=== PATIENT | female | born 1950 | race Caucasian/White ===

== ENCOUNTER → 2018-07-09 09:14 | Outpatient (CLI) | payer MEDICARE, SELFPAY ==
--- NOTE | 2018-06-12 15:13 | EKG12_ITS ---
Test Reason : PREOP Blood Pressure : / mmHG Vent. Rate : 075 BPM Atrial Rate : 075 BPM P-R Int : 176 ms QRS Dur : 094 ms QT Int : 372 ms P-R-T Axes : 048 064 037 degrees QTc Int : 415 ms Normal sinus rhythm Normal ECG Confirmed by CAITLIN THOMAS, HAWA ([id number]), rn oncology research COURTNEY GUILLERMO ([id number]) on 06/13/2018 9:18:23 AM Referred By: Michael Ayala Confirmed By:HAWA TUCKER MD
[2018-06-12 16:12] LABS: Anion Gap 4 (5-15); BUN 9 mg/dL (7-18); BUN/Creat Ratio 9.4 RATIO (10-20); Calcium,Total 9.2 mg/dL (8.5-10.1); Chloride 103 mmol/L (98-107); Creatinine, Serum 0.96 mg/dL (0.55-1.02); EST Glomerular Filtration Rate 62 mL/min (>60); Est Glom Filt Rate - Afr Amer 75 mL/min (>60); Glucose 96 mg/dL (74-106); Potassium 4.4 mmol/L (3.5-5.1); Sodium Level 137 mmol/L (136-145); Thyroid Stim Hormone (TSH) 2.49 uIU/mL (0.358-3.74)
[2018-06-12 16:47] LABS: Hematocrit 40.4 % (37-47); Hemoglobin 13.2 g/dl (12.0-15.0); Mean Corp Hgb Conc 32.7 g/gl (32-36); Mean Corpuscular Hgb 28.2 pg (27.0-32.0); Mean Corpuscular Volume 86.3 fL (81-99); Mean Platelet Vol. 11.6 fl (6.2-12.0); Platelet Count 869 K/mm3 (150-450); RBC Distribution Width CV 16.3 % (11.6-14.6); RBC Distribution Width SD 50.5 fl (35.1-43.9); Red Blood Count 4.68 M/mm3 (4.2-5.4); White Blood Count 24.9 K/mm3 (4.4-11.0)
[2018-06-12 17:06] LABS: Scan Indicated on CBC? Y/N YES- FLAGS NOTED
[2018-06-12 20:02] LABS: Total Cells Counted 100 (MANUAL DIFF)
[2018-06-12 20:10] LABS: Eosinophil 10 % (0-5); Lymphocyte 14 % (19-41); Monocyte 11 % (0-10); Neutrophil-Band 9 % (0-5); Neutrophil-Segmented 51 % (47-70)
[2018-06-12 20:11] LABS: Basophil 5 % (0-1); Platelet Estimate MKD INC (ADEQ); Reactive Lymphocyte 1+; Red Cell Morphology NORM C+C NORMAL (NORM C&C)
[2018-06-14 14:00] LABS: Pathologist Review Reviewed
--- NOTE | 2018-06-14 16:34 | PCM.HP.BLA ---
History and Physical Date of Admission: 06/18/18 HISTORY AND PHYSICAL ? Daria Taylor 1950 ? REFERRING PHYSICIAN: ??Tommy Nieto (Independent Living Specialist), AP* ? CHIEF COMPLAINT: ??Consult ? HPI: Daria is a 68 year old female with a complaint of right upper quadrant pain. ?The patient has had symptoms of right upper quadrant pain for some time. ?The symptoms have increased, over the past few months with the patient having symptoms 2-3 times per week. ?The pain does ?radiate to the back and shoulder. ?Food does ?aggravate her?symptoms. ?Alleviating factors include: none. ? The patient was seen by?her?primary care physician ?2 weeks ago. ?Daria underwent an ultrasound. ?These tests demonstrated cholelithiasis. The patient is referred for evaluation and treatment. ? Since her symptoms are occurring more frequently, she would like to undergo cholecystectomy. ?She has a commitment with family which would make surgery problematic with her scheduled prior to June 16. ? The patient is being seen by me today at the request of Dr. MONE WYMAN MD for my opinion and advice regarding symptomatic cholelithiasis. ? ? SIGNIFICANT MEDICAL PROBLEMS:? PAST MEDICAL HISTORY PAST MEDICAL HISTORY Diagnosis Date ? Dyslipidemia ? ? Fibromyalgia ? ? Hypothyroid ? ? Lupus (HCC) ? ? Macular puckering of retina ? ? Myopia of both eyes ? ? Obesity ? ? Obstructive sleep apnea ? ? Pt denies dx as of 08/29/2013. No polysomnogram per patient. ? Uses contact lenses ? ? ? OPERATIONS:? PAST SURGICAL HISTORY PAST SURGICAL HISTORY Procedure Laterality Date ? APPENDECTOMY ? ? ? KNEE LEFT OP SURGERY ? 2011 ? Dr. Brantley at [facility] ? ? CURRENT MEDICATIONS:? CURRENT MEDICATIONS Current Outpatient Medications: traZODone (DESYREL) 50 mg tablet Take 1 tablet by mouth at bedtime as needed. Disp: Rfl: DULoxetine (CYMBALTA) 30 mg capsule Take 1 capsule by mouth once daily. Disp: 90 capsule Rfl: 3 gabapentin (NEURONTIN) 300 mg capsule Take 2 capsules by mouth twice daily for 90 days. 2 capsules twice daily Disp: 360 capsule Rfl: 1 hydroxychloroquine (PLAQUENIL) 200 mg tablet Take 1 tablet by mouth twice daily. Disp: 180 tablet Rfl: 3 glucosam stephens lqz-dtytjhuyr-P-Mn [id number] mg cap Take by mouth. Disp: Rfl: Omeprazole 40 mg capsule Take 1 capsule by mouth once daily. Disp: 90 capsule Rfl: 3 mirtazapine (REMERON) 45 mg tablet Take 1 tablet by mouth daily at bedtime. Disp: 90 tablet Rfl: 3 levothyroxine (SYNTHROID) 137 mcg tablet Take 1 tablet by mouth once daily. Take on empty stomach. For thyroid. Disp: 90 tablet Rfl: 3 Clobetasol Propionate 0.05 % sham wash scalp twice a week. dispense 2 bottles Disp: 118 mL Rfl: 11 desonide (TRIDESILON) 0.05 % cream apply to rash under breast twice daily mon-mon, take weekends off Disp: 60 g Rfl: 5 econazole (SPECTAZOLE) 1 % cream apply to rash twice daily Disp: 60 g Rfl: 2 Clobetasol Propionate (TEMOVATE) 0.05 % external solution apply to scalp daily Disp: 60 mL Rfl: 3 clobetasol (TEMOVATE) 0.05 % cream apply to rash on arm twice daily Mon-Mon, take weekends off Disp: 60 g Rfl: 1 ibuprofen (MOTRIN) 600 mg tablet Take 600 mg by mouth twice daily. Disp: Rfl: mirtazapine (REMERON) 30 mg tablet Take 1 tablet by mouth daily at bedtime. Disp: Rfl: 0 Cholecalciferol, Vitamin D3, (VITAMIN D-3) 2,000 unit tab Take 1 tablet by mouth once daily. Disp: Rfl: 0 ? No current facility-administered medications for this visit.? ? ALLERGIES:?Codeine; Neomycin; Penicillins; Sulfa (Sulfonamide Antibiotics) ? PERSONAL HISTORY:? SOCIAL HISTORY Social History ??Socioeconomic History ?Marital status: ?Spouse name: Not on file ?Number of children: Not on file ?Years of education: Not on file ?Highest education level: Not on file ??Social Needs ?Financial resource strain: Not on file ?Food insecurity - worry: Not on file ?Food insecurity - inability: Not on file ?Transportation needs - medical: Not on file ?Transportation needs - non-medical: Not on file ??Occupational History ?Occupation: retired ??Tobacco Use ?Smoking status: Former Smoker ?Packs/day: 0.20 ?Years: 3.00 ?Pack years: .6 ?Types: Cigarettes ?Quit date: 08/29/1937 ?Years since quittin.8 ?Smokeless tobacco: Never Used ??Substance and Sexual Activity ?Alcohol use: No ?Drug use: Never ?Sexual activity: Not on file ??Other Topics ?Concerns: ?Not on file ??Social History Narrative ?Not on file ? FAMILY HISTORY:? FAMILY HISTORY FAMILY HISTORY Problem Relation Age of Onset ? Arthritis Mother ?Not RA, DJD ? Blood Disease Mother ? ? Cancer Mother ? ? Genitourinary () Mother ? ? Osteoporosis Mother ? ? Arthritis Father ?Unknown ? Hypertension Sister ? ? No Ocular Disease Other ? ? Arthritis Sister ?DDD in spine ? REVIEW OF SYMPTOMS: ??The review of systems data was entered by the nurse and reviewed by me ? ? REVIEW OF SYSTEMS: ?General:???The patient NOTES?fatigue, denies?weight loss, denies?weight gain, denies?feeling hot, and denies?feelings of cold. ?Eyes: ?The patient denies?glaucoma, denies?eye injury/surgery, does not wear?glasses or contacts. ?Ear/Nose/Throat: ?The patient denies?allergies, denies?hayfever, denies?ear infections, and denies?bloody noses. ?Cardiovascular: ?The patient denies?chest pain, denies?heart disease, denies?high blood pressure,denies?cardiac stent, denies?prior heart attack, denies?irregular heart beat, denies?high cholesterol, ?denies?poor circulation, denies?heart failure, other cardiac issues, denies?claudication, denies?cold feet, denies?peripheral arterial stent. ?Respiratory: ?The patient denies?tuberculosis, denies?pneumonia, denies?frequent cough, denies?pulmonary embolism, denies?shortness of breath, and denies?coughing up blood. ?Gastrointestinal: ?The patient denies?difficulty swallowing, denies?acid reflux, denies?ulcers, denies?vomiting, denies?jaundice/hepatitis, NOTES?gallbladder problems, denies?black or tarry stools, denies?hemorrhoids, denies?bleeding from rectum, denies?diverticulitis, denies?constipation, denies?diarrhea, denies?loss of stool control, and denies?hernias. ?Kidney/Bladder: ?The patient denies?kidney stones, denies?urine infections, and denies?bloody urine. ?Skin: ?The patient denies?a history of skin cancer, denies?bleeding/changing moles, and NOTES?a history of skin rash. ?Neurologic: ?The patient denies?a history of epilepsy/convulsions, denies?headaches, denies?head/spinal injuries, and denies?stroke/TIA. ?Psychiatric: ?The patient denies?psychiatric medications, denies?depression, and denies?voices, denies?substance abuse. ?Endocrine: ?The patient NOTES?thyroid disorders, denies?diabetes, and denies?hormonal problems. ?Hematologic: ?The patient denies?a history of bruising, denies?bleeding, and denies?anemia, denies?blood clots. ?Infections: ?The patient NOTES?a history of measles and mumps, denies?rheumatic fever, and denies?sexually transmitted diseases. ?Musculoskeletal: ?The patient denies?back pain/injury, denies?back problems, denies?sciatica, denies?knee/foot trouble, NOTES?arthritis, or denies?gout. ? PHYSICAL EXAMINATION: ? General: ?The patient is 68 year old female, well nourished, well hydrated in no acute distress. ?The patient is oriented to time, place, and person. ?Significantly obese ? VITALS:??Blood pressure 158/78, pulse 76, weight 114.8 kg (253 lb).??Body mass index is 46.27 kg/m?.? ? HEENT: ?Normal cephalic, ataumatic, pupils are equally round, sclera are anicteric, mucous membranes are moist, oropharynx is clear. ?Neck has no masses, asymmetry or lymphadenopathy. ?Thyroid is unremarkable. ? Respiratory: ?Clear to auscultation and percussion. ?Normal respiratory excursion and pattern. ? Cardiac: ?Examination is regular rate and rhythm. ? Abdominal exam: ?Normoactive bowel sounds, Soft, non tender in the right upper quadrant negative Zambrano's sign, ?with no palpable masses. ?No hepatosplenomegaly. ?No palpable hernias. ? Rectal exam: exam deferred ? Extremities: ?no clubbing, cyanosis or edema. ?No adenopathy. ? Other: ? LABORATORY VALUES: As Noted ? Called?with preoperative laboratory test on complete blood count which demonstrated an elevated platelet count of 869,000?and a WBC count of 24.9 ? RADIOLOGIC STUDIES: ?As Noted Above ? Assessment ? IMPRESSION: RUQ Pain, Cholelithiasis ? PLAN: ??My plan is to perform a laparoscopic cholecystectomy with intraoperative choleangiogram. ??The planned surgical procedure was discussed extensively with the patient. ?The risks, benefits, anticipated outcomes and possible complications were mentioned. ?My staff has also explained the procedure in understandable terms and the patient was given the option to take printed material concerning the planned procedure. ?The patient had the opportunity to ask questions concerning the planned procedure. ?The patient freely consents to the planned procedure. ? Since the patient does not plan for surgical intervention for at least a month, I'm asking her to try significantly to lose approximately 15-20 pounds prior to surgery. ?I discussed with the patient this would make her liver more flexible and surgical intervention saferAncef 2gm IVPB scullion chief to OR safer. ? She is requesting her surgical procedure be performed at [facility]. ? Planned Procedure: LAPAROSCOPIC CHOLECYSTECTOMY WITH INTRAOPERATIVE CHOLEANGIOGRAM - [id number] ? Planned antibiotic: clindamycin 900mg IVPB scullion chief to OR ? SCDs needed - Yes ? Cardiac Exercise Physiologist Needed - Yes ? Diagnoses:?(K80.20) Calculus of gallbladder without cholecystitis without obstruction ?(primary encounter diagnosis) ? ? My findings have been communicated to Dr. CASSIE WYMAN MD via shared medical record. ?This note will be forwarded to Dr. MONE WYMAN MD. ? Michael Ayala MD ? I repeated his CBC and a urinalysis given the leukocytosis and elevated platelet count. ?I spoke with Dr. Wyman?and Dr. Pozo. ??Opinion was that was reasonable to proceed with surgical intervention and then have the patient evaluated by Dr. Pozo for possible CML.
== END ==
PROVIDERS: Family Provider Internal Medicine; PCP Internal Medicine; Referring Provider Surgery; Visit Provider Surgery
DX: R10.11 Right upper quadrant pain (principal); K80.20 Calculus of gallbladder without cholecystitis without obstruction; E66.9 Obesity, unspecified; Z87.891 Personal history of nicotine dependence; E78.5 Hyperlipidemia, unspecified; M79.7 Fibromyalgia; G47.33 Obstructive sleep apnea (adult) (pediatric); Z53.9 Procedure and treatment not carried out, unspecified reason; Z68.42 Body mass index [BMI] 45.0-49.9, adult
CPT/HCPCS: 36415; 80048; 84443; 85007; 85027; 93005

== ENCOUNTER 2020-05-05 16:23 | Outpatient (RCR) | payer MEDICARE, SELFPAY ==
[2020-05-05] MEDS: COVID-19 VACC, MRNA(PFIZER)/PF 30 MCG/0.3 ML SYRINGE IM (18:26)
[2020-05-26] MEDS: COVID-19 VACC, MRNA(PFIZER)/PF 30 MCG/0.3 ML SYRINGE IM (17:53)
== END 2020-08-04 23:59 ==
LOC: IMMUN 16:23
PROVIDERS: PCP Internal Medicine; Visit Provider Family Medicine
DX: Z23 Encounter for immunization (principal)
CPT/HCPCS: 0001A; 0002A; 91300

== ENCOUNTER 2024-04-30 17:28 | Emergency (ER) | payer MEDICARE, SELFPAY ==
[2024-04-30 17:29] VITALS: BP 149/92; PULSE 74; RESP 17; TEMP 36.2; O2SAT 99; BMI 38.5
--- NOTE | 2024-04-30 20:56 | EX.ED.GENINJ ---
HPI History of Present Illness Chief Complaint: Laceration Detail of Chief Complaint: Occipital scalp laceration Informant: patient Onset/Context/Timing Onset: Today (Patient lost her balance due to knee problems striking the back of her head on the edge of a table.) Mechanism/Context: Blunt Injury and Fall Location of pain/injuries: - (Scalp laceration over the occiput region.) Quality of Pain: - (None) Location: Occiput Current Severity: Gone Maximum Severity: The initial impact. Worsened by: Not applicable Relieved by: Not applicable Associated Symptoms Associated Symptoms: Negative for Parasthesias, Weakness, Loss of function, Inability to ambulate, Loss of consciousness or Amnesia Narrative Narrative: Patient is a 74-year-old woman. She is on no antithrombotic or anticoagulant. She has history of GERD and hypothyroidism. She lost her balance which is not abnormal for her. She hit the back of her head. She had no loss consummate should not days. She denies double vision, blurred vision loss of vision. No trouble speech or swallowing. She denies paresthesia, anesthesia Medicus upper lower extremity exam at she denies cardiac or respiratory symptoms. Denies black or maroon-colored stool Recent Illness/Hospitalization: No [facility] Medical History (Updated 04/30/24 @ 22:[address] Georgi Siegel MD) GERD (gastroesophageal reflux disease) Hypothyroidism Home Medications ?Medication ?Instructions ?Recorded ?Last Taken ?Type Ibuprofen 400 - 600 mg PO BID PAIN 06/11/18 Unknown History biotin 300 mcg tablet 300 mcg PO DAILY SUPPLEMENT 06/11/18 Unknown History cholecalciferol (vitamin D3) 50 60,000 unit PO DAILY SUPPLEMENT 06/11/18 Unknown History mcg (2,000 unit) tablet (Vitamin D3) duloxetine 30 mg capsule,delayed 30 mg PO DAILY FIBROMYALGIA 06/11/18 Unknown History release gabapentin 300 mg capsule 300 mg PO BID NERVE PAIN 06/11/18 Unknown History (Neurontin) glucosamine HCl 500 mg-msm 83 2 ea PO DAILY SUPPLEMENT 06/11/18 Unknown History mg-chondroitin 400 mg tablet hydroxychloroquine 200 mg tablet 200 mg PO BID LUPUS 06/11/18 Unknown History (Plaquenil) levothyroxine 137 mcg tablet 137 mcg PO DAILY THYROID 06/11/18 Unknown History mirtazapine 45 mg disintegrating 45 mg PO QHS SLEEP 06/11/18 Unknown History tablet (Remeron SolTab) omeprazole 40 mg capsule,delayed 40 mg PO QHS GERD 06/11/18 Unknown History release Allergy/AdvReac Type Severity Reaction Status Date / Time neomycin Allergy Unknown Verified 04/30/24 17:29 Penicillins (PCN) Allergy Hives Verified 04/30/24 17:29 Sulfa (Sulfonamide Allergy Hives Verified 04/30/24 17:29 Antibiotics) codeine AdvReac Nausea/Vom/ Verified 04/30/24 17:29 Diarrhea Social History Smoking Status: Unknown if ever smoked ROS ROS ED Eyes Eyes: Denies blurry vision or change in vision ENT ENT ED: Reports other Details: Denies epistaxis. Denies malalignment of her teeth. Denies ringing or ears ; Denies rhinorrhea or sore throat Gastrointestinal Gastrointestinal: Reports nausea and vomiting Integumentary Reports other Details: Scalp laceration ; Denies Abrasions or rash Neurologic Neurologic: Denies headache(s) or paresthesias Hematologic/Lymphatic Hematologic/Lymphatic: Denies easy bleeding or easy bruising EXAM Physical Exam Const Vital Signs: 04/30/24 17:29 Temperature 97.2 F L Temperature Source Temporal Pulse Rate 74 Respiratory Rate 17 Blood Pressure 149/92 H Blood Pressure Mean 111 Pulse Ox 99 Oxygen Delivery Method Room Air Positive well nourished and well developed Constitutional Narrative: BMI is 38.5. General Appearance ED: well developed HEENT HEENT Narrative: She has a scalp laceration. There is no palp depression. No clinical signs of basilar skull fracture. There is no facial trauma. Ears are normal. Eyes PERRL and EOMs intact bilaterally General Eye ED: Yes other Other Details: There is no subconjunctival hemorrhage. Resp normal respiratory effort Cardio regular rhythm Rate: regular rate Back/Spine normal to inspection and no thoracic nor lumbar tenderness Extremity normal to inspection General Extremety ED: Negative for deformity or edema General Extremity: Negative for deformity or edema Neuro oriented x3, CN's II-XII intact bilaterally, moves all extremities, no focal motor deficits and no sensory deficits noted Benoit Coma Scale: document GCS findings Spontaneous Obeys Commands Oriented 15 Sensorium / Orientation: alert Motor Exam: strength 5/5 throughout Deep Tendon Reflexes: Rt Triceps (C7): 2+, Lt Triceps (C7): 2+, Rt Biceps (C5, C6): 2+, Lt Biceps (C5, C6): 2+, Rt Brachioradialis (C6): 2+, Lt Brachioradialis (C6): 2+, Rt Patellar (L4): 2+, Lt Patellar (L4): 2+, Rt Ankle (S1): 2+ and Lt Ankle (S1): 2+ Deep Tendon Reflexes Back: Rt Patellar (L4): 2+, Lt Patellar (L4): 2+, Rt Ankle (S1): 2+ and Lt Ankle (S1): 2+ Plantar Reflex: Downgoing: bilateral Psych mental status grossly normal and thought process normal Skin no rashes or lesions noted, No no wounds, skin turgor normal and no jaundice Skin Narrative: Patient has scalp laceration that needs repair. Plan is have nurse undress her from the waist. No styes the wound and irrigate and then staple PROC Procedures Other Procedures Procedure(s): Patient has a 3.0 cm scalp laceration. The wound was anesthetized by local infiltration with 1% lidocaine. Wound was irrigated with the 125 cc of normal saline. Exploration of the wound reveals the galea to be intact. There is no palp depression. The laceration was repaired using staple gun. Total of 5 tunde placed. Patient tolerated procedure without complications or difficulty. MDM MDM MDM Narrative Medical decision making narrative: Patient did hit her head. She had no loss conscious. She is not amnestic. She has no headache. She was not dazed. She is on no antithrombotic or anticoagulant. With a GCS of 15 and nonfocal neurologic exam. Since she had none of these for the [place] rule imaging is not mandatory. The laceration was repaired and documented under the procedure portion of the EMR. Patient was discharged to home. Since patient had no neck pain full range of motion there is no indication for imaging of the neck. Discharge Plan Triage Chief Complaint: Laceration ED Provider: Georgi Siegel Dx/Rx/DC Orders Clinical Impression: Laceration of occipital scalp, Injury due to fall, Elevated blood-pressure reading without diagnosis of hypertension Instructions: ED Hypertension, To Be Confirmed, ED Laceration Scalp Stitches or Tunde Prescriptions: No Action levothyroxine 137 MCG tablet 137 mcg PO DAILY mirtazapine [Remeron SolTab] 45 MG tablet,disintegrating 45 mg PO QHS omeprazole 40 MG capsule,delayed release(DR/EC) 40 mg PO QHS biotin 300 MCG tablet 300 mcg PO DAILY gabapentin [Neurontin] 300 MG capsule 300 mg PO BID hydroxychloroquine [Plaquenil] 200 MG tablet 200 mg PO BID duloxetine 30 MG capsule,delayed release(DR/EC) 30 mg PO DAILY cholecalciferol (vitamin D3) [Vitamin D3] 2,000 UNIT tablet 60,000 unit PO DAILY glucosamine [id number] 1 EACH tablet 2 ea PO DAILY Ibuprofen 200 MG tablet 400 - 600 mg PO BID Primary Care Provider: Emilia Feldman Referrals: Emilia Feldman MD [Primary Care Provider] - 10 Day for suture removal Activity Restrictions/Additional Instructions: 1. You will need to have your blood pressure reassessed in 1 to 2 weeks. 2. Courtland to be removed in 10 days Print Language: Yi Disposition Disposition: Home, Self Care
[2024-04-30] MEDS: Lidocaine 1% (20 ml mdv) 20 ML Vial INFILT (20:59)
[2024-04-30 21:28] VITALS: RESP 18
[2024-04-30 22:40] VITALS: BP 133/65; PULSE 87; RESP 16; TEMP 36.7; O2SAT 99
== END 2024-04-30 22:42 | disposition home or self-care (01) ==
PROVIDERS: Emergency Provider Emergency Medicine; PCP Internal Medicine; Visit Provider Emergency Medicine
DX: S01.01XA Laceration without foreign body of scalp, initial encounter (principal); E03.9 Hypothyroidism, unspecified; R03.0 Elevated blood-pressure reading, without diagnosis of hypertension; K21.9 Gastro-esophageal reflux disease without esophagitis; W01.10XA Fall on same level from slipping, tripping and stumbling with subsequent striking against unspecified object, initial encounter
CPT/HCPCS: 12002; 99282

== ENCOUNTER → 2024-10-02 | Outpatient (CLI) | payer MEDICARE, SELFPAY ==
[2024-10-08 06:08] LABS: QNTFERON TB Mitogen Value 5.61 IU/mL (.); QNTFERON TB Nil Value 0.06 IU/mL (.); QNTFERON TB1+ Ag Value 0.06 IU/mL (.); QNTFERON TB2+ Ag Value 0.05 IU/mL (.); QNTIFERON TB Positive Criteria Negative (Negative)
== END | disposition home or self-care (01) ==
LOC: MTLAB 15:29
PROVIDERS: PCP Internal Medicine; Referring Provider Physician Assistant; Visit Provider Physician Assistant
DX: L40.0 Psoriasis vulgaris (principal)
CPT/HCPCS: 36415; 86480

== ENCOUNTER → 2025-01-15 | Outpatient (CLI) | payer MEDICARE, SELFPAY ==
--- NOTE | 2025-01-15 16:46 | CT_ITS ---
PROCEDURE: SINUS/FACIAL BONE 01/15/2025 REASON FOR EXAM: CHRONIC SINUSITIS TECHNIQUE: Procedure Code: CTSI Modality: CT Procedure: SINUS/FACIAL BONE Coronal and Sagittal reconstruction series were provided. One or more dose reduction techniques were used (e.g., Automated exposure control, adjustment of the mA and/or kV according to patient size, use of iterative reconstruction technique). RADIATION DOSE SUMMARY: CTDlvol: 33.06 mGy DLP: 804.92 mGycm COMPARISON: None FINDINGS: Frontal: Unremarkable Ethmoid: Unremarkable Sphenoid: Unremarkable Maxillary: Minimal degree of mucosal thickening along the medial inferior aspect of the left maxillary sinus. Turbinates: Unremarkable Nasal Septum: Midline Mastoids/Middle Ears: Unremarkable CT/Sinus/Facial Bone IMPRESSION: Minimal degree of mucosal thickening along the medial inferior aspect of the le ft maxillary sinus. Reading Location: [id number]
== END | disposition home or self-care (01) ==
LOC: CT 16:41
PROVIDERS: PCP Internal Medicine; Referring Provider Otolaryngology; Visit Provider Otolaryngology
DX: J32.8 Other chronic sinusitis (principal)
CPT/HCPCS: 70486